=== PATIENT | female | born 1975 | race Caucasian/White ===

== ENCOUNTER 2018-03-04 12:45 | Emergency (ER) | payer OTHER ==
--- NOTE | 2018-03-04 14:28 | RAD REPORT ---
EXAM DESCRIPTION: RAD - Foot Right 3 View - 03/04/2018 1:41 pm CLINICAL HISTORY: Right foot pain status post injury FINDINGS: An amputation involves a portion of the first distal phalanx which probably is old. There are couple of tiny bony densities within adjacent tissue. There is an oblique lucency within the resi dual first distal phalanx which is equivocal for a nondisplaced fracture. Another consideration is th at a represents a prominent trabecula. No dislocation is seen
--- NOTE | 2018-03-04 14:48 | EDPHYS ---
Physician Documentation [facility] Name: Colette Ott Age: 42 yrs Sex: Female : 1975 Arrival Date: 03/04/2018 Time: 12:54 Bed 9 Private MD: Unknown, Unknown ED Physician Nikko Bull HPI: 03/04 14:40 This 42 yrs old Female presents to ER via Ambulatory with complaints of Toe gs Injury. 14:40 The patient presents with an injury. The complaints affect the right foot. Context: gs resulted from the patient falling, a mis-step by the patient, the patient can partially bear weight. Onset: The symptoms/episode began/occurred 3 day(s) ago. Modifying factors: the symptoms are aggravated by weight bearing, movement. Associated signs and symptoms: Pertinent negatives: fever, numbness, weakness. Severity of symptoms: At their worst the symptoms were moderate, in the emergency department the symptoms are unchanged. The patient has not experienced similar symptoms in the past. 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 - Social history:: Smoking status: Patient/guardian denies using tobacco. - Ebola Screening: : No symptoms or risks identified at this time. ROS: 14:42 All other systems are negative. gs Exam: 14:42 Constitutional: The patient appears alert, awake. gs 14:42 Neck: C-spine: appears grossly normal. 14:42 Cardiovascular: Rate: normal, Rhythm: regular, Pulses: no pulse deficits are appreciated. 14:42 Back: Exam negative for acute changes. 14:42 Musculoskeletal/extremity: Extremities: noted in the right foot: decreased ROM, ecchymosis, ROM: intact in all extremities, limited active range of motion due to pain, limited passive range of motion due to pain, Perfusion: the patient is normally perfused throughout, Sensation intact. 14:42 Skin: Exam negative for acute changes. Vital Signs: 13:03 BP 121 / 63; Pulse 64; Resp 16 S; Temp 98.0(TE); Pulse Ox 98% on R/A; Weight 81.65 kg aa5 (R); Height 5 ft. 2 in. (157.48 cm) (R); Pain 3/10; 13:03 Body Mass Index 32.92 (81.65 kg, 157.48 cm) aa5 MDM: 13:10 Patient medically screened. gs 14:42 Differential diagnosis: fracture, sprain. Data reviewed: vital signs, nurses notes. gs Response to treatment: the patient's symptoms have mildly improved after treatment, and as a result, I will discharge patient. 03/04 13:10 Order name: Foot Right 3 View XRAY; Complete Time: 14:40 gs Administered Medications: No medications were administered Disposition: 03/04/18 14:48 Discharged to Home. Impression: Other sprain of right foot. - Condition is Stable. - Discharge Instructions: Foot Contusion, Foot Sprain. - Medication Reconciliation Form, Thank You Letter, Antibiotic Education, Prescription Opioid Use, Work release form form. - Follow up: Darius Painter MD; When: 2 - 3 days; Reason: Re-evaluation by your physician. Signatures: Dispatcher [employer] EDMS Jade Lamb RN RN aa5 Nikko Bull MD MD Marley Villa RN RN kr2 Corrections: (The following items were deleted from the chart) 15:04 14:48 03/04/2018 14:48 Discharged to Home. Impression: Other sprain of right foot. kr2 Condition is Stable. Forms are Medication Reconciliation Form, Thank You Letter, Antibiotic Education, Prescription Opioid Use. Follow up: Darius Painter; When: 2 - 3 days; Reason: Re-evaluation by your physician. gs
--- NOTE | 2018-03-04 14:48 | ER ---
Nurse's Notes [facility] Name: Colette Ott Age: 42 yrs Sex: Female : 1975 Arrival Date: 03/04/2018 Time: 12:54 Bed 9 Private MD: Unknown, Unknown Diagnosis: Other sprain of right foot Presentation: 03/04 13:01 Presenting complaint: Patient states: "I jumped off a tractor Saturday and I hurt my aa5 big toe". pt c/o pain to right great toe. Transition of care: patient was not received from another setting of care. Onset of symptoms was February 2018. Risk Assessment: Do you want to hurt yourself or someone else? Patient reports no desire to harm self or others. Initial Sepsis Screen: Does the patient meet any 2 criteria? No. Patient's initial sepsis screen is negative. Does the patient have a suspected source of infection? No. Patient's initial sepsis screen is negative. Care prior to arrival: None. 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 - Social history:: Smoking status: Patient/guardian denies using tobacco. - Ebola Screening: : No symptoms or risks identified at this time. Screenin:33 Abuse screen: Denies threats or abuse. Denies injuries from another. Nutritional kr2 screening: No deficits noted. Tuberculosis screening: No symptoms or risk factors identified. Fall Risk None identified. Assessment: 13:30 General: Appears in no apparent distress. comfortable, well groomed, well developed, kr2 well nourished, Behavior is calm, cooperative, appropriate for age. Pain: Complains of pain in right great toe Pain radiates to right first toe Pain currently is 0 out of 10 on a pain scale. Quality of pain is described as tender, Pain began suddenly, Is intermittent, Alleviated by rest, Aggravated by weight bearing. Neuro: Level of Consciousness is awake, alert, obeys commands, Oriented to person, place, time, situation, Appropriate for age Intact. Cardiovascular: Capillary refill < 3 seconds in bilateral fingers toes. Respiratory: Airway is patent Respiratory effort is even, unlabored, Respiratory pattern is regular, symmetrical. Derm: Skin is intact, is healthy with good turgor, Skin is pink, warm \\T\\ dry. Bruising that is dark purple, on right great toe. Musculoskeletal: Circulation, motion, and sensation intact. Range of motion: intact in all extremities. 14:37 Reassessment: Patient appears in no apparent distress at this time. Patient and/or kr2 family updated on plan of care and expected duration. Pain level reassessed. Patient is alert, oriented x 3, equal unlabored respirations, skin warm/dry/pink. Patient denies pain at this time. 15:02 Reassessment: Patient appears in no apparent distress at this time. Patient and/or kr2 family updated on plan of care and expected duration. Pain level reassessed. Patient is alert, oriented x 3, equal unlabored respirations, skin warm/dry/pink. Patient denies pain at this time. Vital Signs: 13:03 BP 121 / 63; Pulse 64; Resp 16 S; Temp 98.0(TE); Pulse Ox 98% on R/A; Weight 81.65 kg aa5 (R); Height 5 ft. 2 in. (157.48 cm) (R); Pain 3/10; 13:03 Body Mass Index 32.92 (81.65 kg, 157.48 cm) aa5 ED Course: 12:54 Patient arrived in ED. jb7 12:55 Unknown, Unknown is Private Physician. jb7 13:02 Triage completed. aa5 13:02 Arm band placed on. aa5 13:04 Nikko Bull MD is Attending Physician. gs 13:23 Marley Villa, RN is Primary Nurse. kr2 13:33 Patient has correct armband on for positive identification. Bed in low position. Call kr2 light in reach. Door closed. Verbal reassurance given. 13:41 Foot Right 3 View XRAY In Process Unspecified. EDMS 14:47 Darius Painter MD is Referral Physician. gs 15:03 No provider procedures requiring assistance completed. Patient did not have IV access kr2 during this emergency room visit. Administered Medications: No medications were administered Outcome: 14:48 Discharge ordered by . gs 15:04 Discharged to home ambulatory, with family. kr2 15:04 Condition: good 15:04 Discharge instructions given to patient, Instructed on discharge instructions, follow up and referral plans. Demonstrated understanding of instructions, follow-up care. 15:04 Patient left the ED. kr2 Signatures: Dispatcher [employer] EDJade Warren, RN RN aa5 Anatoly Lira jb7 Nikko Bull MD MD gs Reaves, Karey, RN RN kr2
[2018-03-04 16:37] VITALS: BP 121/63; TEMP 98; O2SAT 98
== END 2018-03-04 15:04 | disposition home or self-care (01) ==
LOC: ER 12:45
DX: S93.691A Other sprain of right foot, initial encounter (principal); W18.39XA Other fall on same level, initial encounter; Y93.89 Activity, other specified; Y92.9 Unspecified place or not applicable
CPT/HCPCS: 99283

== ENCOUNTER 2021-03-12 11:22 | Emergency (ER) | payer OTHER ==
[2021-03-12] MEDS ORDERED: IBUPROFEN 400 MG TAB ONE (12:22)
--- NOTE | 2021-03-12 12:59 | EDPHYS ---
Physician Documentation [facility] Name: Colette Ott Age: 45 yrs Sex: Female : 1975 Arrival Date: 03/12/2021 Time: 11:24 Bed 5 Private MD: ED Physician Doc Guillory HPI: 03/12 14:04 This 45 yrs old Female presents to ER via Ambulatory with complaints of Leg kb Pain. 14:04 The patient presents with pain, that is acute. The complaints affect the right leg. kb Context: The problem was sustained at home, resulted from an unknown cause, the patient can fully bear weight, the patient is able to ambulate, Problem is a result from a previous injury: No. Onset: The symptoms/episode began/occurred last night. Modifying factors: The symptoms are alleviated by nothing. the symptoms are aggravated by nothing. Associated signs and symptoms: The patient has no apparent associated signs or symptoms. Treatment prior to arrival includes: no previous treatment. Severity of symptoms: At their worst the symptoms were moderate, in the emergency department the symptoms are unchanged. The patient has not experienced similar symptoms in the past. The patient has not recently seen a physician. Pt reports achiness to right leg that started last night. States it isn't really pain, but she feels like maybe the blood isn't flowing like it should. Denies injury or trauma. Denies tingling, numbness or decreased sensation. Historical: - Allergies: 11:30 cows milk; ll1 11:30 eggs; ll1 - PSHx: 11:30 toe amputation; Hysterectomy; Carpal Tunnel Repair; shoulder sx; ll1 - Immunization history:: Client reports having NOT received the Covid vaccine. Flu vaccine status is unknown. - Social history:: Smoking status: Patient denies any tobacco usage or history of. ROS: 14:07 Constitutional: Negative for fever, chills, and weight loss, Skin: Negative for injury, kb rash, and discoloration, Neuro: Negative for headache, weakness, numbness, tingling, and seizure. 14:07 MS/extremity: Positive for pain, of the right leg. 14:08 All other systems are negative. kb Exam: 14:08 Constitutional: This is a well developed, well nourished patient who is awake, alert, kb and in no acute distress. ENT: Moist Mucous membranes Respiratory: Respirations even and unlabored. No increased work of breathing, no retractions or nasal flaring. Skin: Warm, dry with normal turgor. Normal color. MS/ Extremity: Pulses equal, no cyanosis. Neurovascular intact. Full, normal range of motion. Neuro: Awake and alert, GCS 15, oriented to person, place, time, and situation. Moves all extremities. Normal gait. Psych: Awake, alert, with orientation to person, place and time. Behavior, mood, and affect are within normal limits. Vital Signs: 11:30 BP 112 / 60; Pulse 72; Resp 16; Temp 97.8; Pulse Ox 99% ; Weight 81.65 kg; Height 5 ft. ll1 1 in. (154.94 cm); Pain /; 12:06 BP 117 / 69; Pulse 64; Resp 16; Pulse Ox 98% on R/A; ae4 13:00 BP 114 / 59; Pulse 68; Resp 17; Pulse Ox 96% ; rb3 11:30 Body Mass Index 34.01 (81.65 kg, 154.94 cm) ll1 MDM: 11:35 Patient medically screened. kb 14:04 Data reviewed: vital signs, nurses notes. Data interpreted: Pulse oximetry: on room air kb is 96 %. Interpretation: normal. Counseling: I had a detailed discussion with the patient and/or guardian regarding: the historical points, exam findings, and any diagnostic results supporting the discharge/admit diagnosis, radiology results, the need for outpatient follow up, a family practitioner, to return to the emergency department if symptoms worsen or persist or if there are any questions or concerns that arise at home. 03/12 11:45 Order name: Extremity Venous Unilateral Ltd; Complete Time: 13:10 kb 03/12 11:45 Order name: LE Artery Uni Ltd; Complete Time: 13:10 kb Administered Medications: 12:06 Drug: Ibuprofen 800 mg Route: PO; ae4 13:14 Follow up: Response: No adverse reaction; Pain is decreased ae4 13:17 Follow up: Response: No adverse reaction rb3 Disposition: 15:18 Co-signature as Attending Physician, Doc Guillory MD. rn Disposition: 03/12/21 12:58 Discharged to Home. Impression: Pain in right leg. - Condition is Stable. - Discharge Instructions: Musculoskeletal Pain. - Prescriptions for Cyclobenzaprine 10 mg Oral Tablet - take 1 tablet by ORAL route every 8 hours As needed; 21 tablet. - Medication Reconciliation Form, Thank You Letter, Antibiotic Education, Prescription Opioid Use form. - Follow up: Emergency Department; When: As needed; Reason: Worsening of condition. Follow up: Private Physician; When: 2 - 3 days; Reason: Recheck today's complaints, Continuance of care, Re-evaluation by your physician. Signatures: Dispatcher [employer] EDPA Bambi Diaz, SRINIVASA-Nannette SCANLONP-Doc Arshad MD MD rn Stone Whiteside RN RN ae4 Leatha Ashford RN RN ll1 Diana Sanon RN rb3 Corrections: (The following items were deleted from the chart) 13:18 12:58 03/12/2021 12:58 Discharged to Home. Impression: Pain in right leg. Condition is ae4 Stable. Forms are Medication Reconciliation Form, Thank You Letter, Antibiotic Education, Prescription Opioid Use. Follow up: Emergency Department; When: As needed; Reason: Worsening of condition. Follow up: Private Physician; When: 2 - 3 days; Reason: Recheck today's complaints, Continuance of care, Re-evaluation by your physician. kb
--- NOTE | 2021-03-12 12:59 | ER ---
Nurse's Notes [facility] Name: Colette Ott Age: 45 yrs Sex: Female : 1975 Arrival Date: 03/12/2021 Time: 11:24 Bed 5 Private MD: Diagnosis: Pain in right leg Presentation: 03/12 11:30 Coronavirus screen: Client denies travel out of the [place] in the last 14 days. At this ll1 time, the client does not indicate any symptoms associated with coronavirus-19. Ebola Screen: Patient denies travel to an Ebola-affected area in the 21 days before illness onset. Initial Sepsis Screen: Does the patient meet any 2 criteria? No. Patient's initial sepsis screen is negative. Does the patient have a suspected source of infection? No. Patient's initial sepsis screen is negative. Risk Assessment: Do you want to hurt yourself or someone else? Patient reports no desire to harm self or others. Onset of symptoms was March 11, 2021. 11:30 Method Of Arrival: Ambulatory 1 11:30 Acuity: EPIFANIO 3 ll1 11:31 Chief complaint: Patient states: R leg pain since last night. No trauma or falls. ll1 States it feels like "decreased blood flow" to extremity. Pain to upper thigh with certain movements. States she had a little low back pain all week, none right now. Triage Assessment: 11:30 General: Appears in no apparent distress. uncomfortable, Behavior is cooperative, ae4 appropriate for age, anxious. Pain: Complains of pain in right leg. EENT: No deficits noted. Neuro: No deficits noted. Cardiovascular: No deficits noted. Respiratory: No deficits noted. GI: No signs and/or symptoms were reported involving the gastrointestinal system. : No signs and/or symptoms were reported regarding the genitourinary system. Derm: No deficits noted. Musculoskeletal: Reports pain in right leg. Historical: - Allergies: 11:30 cows milk; ll1 11:30 eggs; ll1 - PSHx: 11:30 toe amputation; Hysterectomy; Carpal Tunnel Repair; shoulder sx; ll1 - Immunization history:: Client reports having NOT received the Covid vaccine. Flu vaccine status is unknown. - Social history:: Smoking status: Patient denies any tobacco usage or history of. Screenin:16 Abuse screen: Denies threats or abuse. Nutritional screening: No deficits noted. ae4 Tuberculosis screening: No symptoms or risk factors identified. Fall Risk None identified. Assessment: 12:07 General: Appears in no apparent distress. comfortable, Behavior is calm, cooperative. ae4 Pain: Complains of pain in right leg Pain radiates to right leg Pain currently is 8 out of 10 on a pain scale. Neuro: Level of Consciousness is awake, alert, obeys commands, Oriented to person, place, time, situation, Appropriate for age. Cardiovascular: Patient's skin is warm and dry. Respiratory: Airway is patent Respiratory effort is even, unlabored, Respiratory pattern is regular, symmetrical. GI: No signs and/or symptoms were reported involving the gastrointestinal system. Abdomen is round. : No signs and/or symptoms were reported regarding the genitourinary system. EENT: No signs and/or symptoms were reported regarding the EENT system. Derm: Skin is pink, warm \\T\\ dry. Musculoskeletal: No obvious swelling or redness, patient states "it hurts inside". Injury Description: Patient denies injury. 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 ae4 13:16 Reassessment: PT D/C HOME AMBULATORY, DX WITH MUSCULOSKELETAL PAIN. ae4 Vital Signs: 11:30 BP 112 / 60; Pulse 72; Resp 16; Temp 97.8; Pulse Ox 99% ; Weight 81.65 kg; Height 5 ft. ll1 1 in. (154.94 cm); Pain 1/10; 12:06 BP 117 / 69; Pulse 64; Resp 16; Pulse Ox 98% on R/A; ae4 13:00 BP 114 / 59; Pulse 68; Resp 17; Pulse Ox 96% ; rb3 11:30 Body Mass Index 34.01 (81.65 kg, 154.94 cm) ll1 ED Course: 11:24 Patient arrived in ED. as 11:29 Arm band placed on. ll1 11:31 Triage completed. ll1 11:34 Bambi Diaz [facility]C [facility]. kb 11:34 Doc Guillory MD is Attending Physician. kb 11:57 Benjamin Luis, GENE is Primary Nurse. bp 12:16 Patient has correct armband on for positive identification. Bed in low position. Pulse ae4 ox on. NIBP on. 12:55 US Extremity Venous Unilateral Ltd In Process Unspecified. EDMS 12:55 US LE Artery Uni Ltd In Process Unspecified. EDMS 13:16 No provider procedures requiring assistance completed. Patient did not have IV access ae4 during this emergency room visit. Administered Medications: 12:06 Drug: Ibuprofen 800 mg Route: PO; ae4 13:14 Follow up: Response: No adverse reaction; Pain is decreased ae4 13:17 Follow up: Response: No adverse reaction rb3 Outcome: 12:58 Discharge ordered by MD. mendoza 13:16 Discharged to home ambulatory. ae4 13:16 Condition: stable 13:16 Discharge instructions given to patient, Instructed on discharge instructions, follow up and referral plans. medication usage, Demonstrated understanding of instructions, follow-up care, medications, Prescriptions given X 1. 13:18 Patient left the ED. ae4 Signatures: Dispatcher [employer] EDMS Bambi Diaz, SRINIVASA-C CONVERSION MAN-Dilia Whiteside Brian, RN RN bp Stone Whiteside RN RN ae4 Leatha Ashford RN RN ll1 Diana Sanon, RN RN rb3
--- NOTE | 2021-03-12 13:06 | RAD REPORT ---
EXAM DESCRIPTION: US - Extremity Venous Uni Ltd - 03/12/2021 12:55 pm CLINICAL HISTORY: PAIN Leg swelling and edema. COMPARISON: No comparisons FINDINGS: Right lower extremity venous system was interrogated with Doppler technique. Normal flow, compressibility and augmentation was noted. There is no DVT present. IMPRESSION: No evidence of right lower extremity deep venous thrombosis.
--- NOTE | 2021-03-12 13:07 | RAD REPORT ---
EXAM DESCRIPTION: US - Lower Extremity Artery Uni Ltd - 03/12/2021 12:55 pm CLINICAL HISTORY: PAIN COMPARISON: No comparisons TECHNIQUE: Right lower extremity arterial Doppler examination was performed with waveform tracing. FINDINGS: Triphasic waveforms are seen throughout the right lower extremity arterial system to the level of the dorsalis pedis arteries. No significant stenosis or occlusion. IMPRESSION: No flow abnormality detected involving the right lower extremity arterial system.
[2021-03-12 13:37] VITALS: TEMP 97.8
[2021-03-12 13:39] VITALS: BP 114/59; O2SAT 96
== END 2021-03-12 13:18 | disposition home or self-care (01) ==
LOC: ER 11:22
DX: M79.604 Pain in right leg (principal); Z91.011 Allergy to milk products; Z91.012 Allergy to eggs
CPT/HCPCS: 93926; 93971; 99284